=== PATIENT | female | born 1955 | race Caucasian/White ===

== ENCOUNTER 2017-06-28 07:01 | Observation (INO) | payer BC ==
[2017-06-23 14:14] VITALS: BMI 32.5
[~2017-06-28 07:01] MED LIST: DEXAMETHASONE SOD PHOSPHATE 10 MG/ML 1 ML VIAL IV ONE; HEPARIN SODIUM,PORCINE 5,000 UNIT/ML 1 ML VIAL SQ ONE; HYDROmorphone 0.5 MG/0.5 ML SYRINGE IVP PRN; LIDOCAINE 1% 20 ML VIAL (10MG/ML) FOR IV START INTRADERMA PRN; ONDANSETRON 4 MG/2 ML VIAL IVP ONE; Pre Op ABX Message 1 EACH MISC MISCELLANE ONE; SCOPOLAMINE 1.5MG/72HR PATCH TRANSDERM ONE
[2017-06-28] MEDS ORDERED: ALPRAZolam 0.5 MG TAB PO STA (07:22)
[2017-06-28] MEDS: LACTATED RINGERS 1,000 ML IV SCH (07:54)
--- NOTE | 2017-06-28 08:54 | NM ---
EXAMINATION TYPE: NM sentinel node injection DATE OF EXAM: 06/28/2017 COMPARISON: No prior imaging available at this institution. HISTORY: Right breast carcinoma with request for right breast sentinel lymph node injection. TECHNIQUE AND FINDINGS: The procedure of sentinel lymph node injection was explained to the patient. The benefits, alternatives, and risks were discussed. An informed consent was then obtained. Overlying skin is cleaned with sterile alcohol. Lidocaine buffered with bicarbonate was used as anes thetic into the skin and subcutaneous tissue surrounding the nipple. Following this, 513 uCi Tc 99m Filtered Sulfur Colloid was injected into 4 equivalent doses at 12, 3, 6, and 9:00 position surroundi ng the right nipple intradermally. The injection sites were massaged by nuclear worker technician for 10 minutes after injection. T he patient tolerated the procedure well without any immediate complication. The patient was kept in the radiology department for short stay after the procedure and then taken to surgery for surgical pr ocedure what is presumed intraoperative gamma probe will be used for sentinel lymph node detection. IMPRESSION: Right breast radiotracer injection for sentinel node localization as above.
[2017-06-28] MEDS ORDERED: HEPARIN SODIUM,PORCINE 5,000 UNIT/ML 1 ML VIAL SQ ONE (08:55)
--- NOTE | 2017-06-28 08:55 | P.PN ---
Progress Note - Text Discussed with the patient the fact that her pathology would normally be reviewed by the pathologist at our institution. However it would be an additional charge to the patient for this and she does not wish for pathology to be reviewed. I would concur that clinically the pathologic findings are consistent with the diagnosis and she wishes to proceed with surgery.
[2017-06-28] MEDS ORDERED: METHYLENE BLUE 10 MG/ML (10 ML VIAL) IV STA (09:06)
[2017-06-28] MEDS ORDERED: ceFAZolin IN SWFI 2 GM/20 ML SYRINGE IVP STA (09:08)
[2017-06-28] MEDS ORDERED: MIDAZOLAM 2 MG/2 ML VIAL ONE (09:30)
[2017-06-28] MEDS ORDERED: SUCCINYLCHOLINE CHLORIDE 100 MG/5 ML SYR IV ONE (09:30)
[2017-06-28] MEDS ORDERED: fentaNYL (PF) 50 MCG/ML 2 ML AMP ONE (09:30)
[2017-06-28] MEDS ORDERED: LIDOCAINE 1% INJ 10MG/ML (20 ML MDV) ONE (09:30)
[2017-06-28] MEDS ORDERED: PROPOFOL 10 MG/ML 20 ML VIAL IV ONE (09:30)
[2017-06-28] MEDS ORDERED: HYDROmorphone (PF) 1 MG/ML ONE (09:30)
[2017-06-28] MEDS ORDERED: ONDANSETRON 4 MG/2 ML VIAL ONE (09:30)
[2017-06-28] MEDS ORDERED: ceFAZolin IN SWFI 2 GM/20 ML SYRINGE IVP ONE (09:36)
[2017-06-28] MEDS ORDERED: METHYLENE BLUE 10 MG/ML (10 ML VIAL) INJ ONE (09:36)
[2017-06-28] MEDS ORDERED: LACTATED RINGERS 1,000 ML IV ONE (10:16)
[2017-06-28] MEDS ORDERED: ONDANSETRON 4 MG/2 ML VIAL IVP PRN (12:21)
[2017-06-28] MEDS ORDERED: NALOXONE 0.4 MG/ML 1 ML VIAL IV PRN (12:21)
[2017-06-28] MEDS ORDERED: HYDROcodone/APAP 5-325MG 1 EACH TAB PO PRN (12:21)
--- NOTE | 2017-06-28 12:21 | P.OP ---
Date of Procedure: 06/28/17 Preoperative Diagnosis: right breast cancer Postoperative Diagnosis: same Procedure(s) Performed: lymphatic mapping, right mastectomy with excision of portion of pectoralis major muscle, sentinel node biopsy 3 Anesthesia: KAYLAHA Surgeon: Katie Pickering Estimated Blood Loss (ml): 150 IV fluids (ml): 750 Pathology: other ([place] nodes times three, right breast) Condition: stable Disposition: PACU Indications for Procedure: right breast cancer Operative Findings: mass in inferior breast, extension to inferior margin re excised Description of Procedure: patient was taken to the operating room and following induction of general anesthesia to have cc of half strength methylene blue were injected in the right. Over area. The area was prepped using alcohol and the methylene blue was then injected. The breast was massaged for 3 minutes and the breast and right arm were then prepped and draped in a sterile fashion with the right arm free draped. Following this superior and inferior skin flaps were developed. These were carried down to the chest wall. The somewhat vascular and it was necessary to ligate several vessels in the process and the Harmonic Scalpel was used as well. The breast was then dissected from medial to lateral off the chest wall. Again several vessels were ligated and cauterized using the Harmonic scalpel. The aspect. There was a separate nodule and excision of the inferior margin was performed. At this time no palpable abnormality was identified at the margin. The breast was removed. The axilla was then approached. The neoprobe was utilized to identify a sentinel node. The first sentinel node was slightly blue and had a count of approximately 40,000. 2 other sentinel nodes were identified in the second sentinel node had a count of 1587 at 10 seconds initially, 1288 at 10 seconds. The background count was 29. No other blue lymph nodes of concern were identified. Frozen section evaluation of the lymph nodes were negative for cancer. After assured was attained the axilla and the chest wall were well irrigated. 2 ZEN drains were placed one in the axilla and one under the flaps. The deep tissues were closed using 3-0 Vicryl suture. The skin was closed using 4-0 Monocryl. Steri-Strips were applied. A sterile dressing and Chuy wrap were applied. The patient tolerated the procedure in stable condition. All instrument and sponge counts were correct at the end of the case. The specimen was painted for orientation. Additional tissue that had been removed was sutured to the specimen in the correct orientation and this was related to the pathologist.
[2017-06-28] MEDS ORDERED: ONDANSETRON 4 MG/2 ML VIAL IVP ONE (13:44)
[2017-06-28] MEDS ORDERED: SCOPOLAMINE 1.5MG/72HR PATCH TRANSDERM STA (16:29)
[2017-06-28] MEDS: DEXTROSE 5%-0.45% NACL 1,000 ML IV SCH (22:50)
[2017-06-28] MEDS: HYDROmorphone 4 MG/ML 1 ML SYRINGE IV PRN (22:51)
[2017-06-29] MEDS: HEPARIN SODIUM,PORCINE 5,000 UNIT/ML 1 ML VIAL SQ SCH ×3 (00:20→08:35)
[2017-06-29] MEDS: DEXTROSE 5%-0.45% NACL 1,000 ML IV SCH ×2 (01:48→09:55)
[2017-06-29 03:45] VITALS: RESP 16
[2017-06-29] MEDS: LACTATED RINGERS 1,000 ML IV SCH (03:52)
--- NOTE | 2017-06-29 05:24 | CONS ---
CONSULTATION DATE OF CONSULTATION: 06/28/2017 REASON FOR CONSULTATION: Medical management requested by Dr. Pepper Pickering. CONSULTATION: This is a 61-year-old patient of Dr. Price. Chronic stable medical conditions include osteoarthritis of different joints, varicose veins in the right leg. The patient was discovered to have a mass in the right breast, coming in for imaging was done. Based on that, it was decided to proceed with current surgery. Postop, patient had some pain at the operative site. The patient had some nausea and vomiting. Lying in bed. The patient's daughter is by the bedside. Denies any cardiac history. REVIEW OF SYSTEMS: CONSTITUTIONAL: None. HEENT: None. RESPIRATORY: Exertional wheezing. CARDIOVASCULAR: None. GASTROINTESTINAL: As above. GENITOURINARY: None. MUSCULOSKELETAL: Arthritic pain in many joints. DERMATOLOGICAL: None. HEMATOLOGIC: None. LYMPHATICS: None. PSYCHIATRY: None. NEUROLOGICAL: None. The patient has got varicose veins coming back on the right leg. PAST MEDICAL HISTORY: Past medical history of exercise-induced asthma, osteoarthritis, varicose veins. PAST SURGICAL HISTORY: Tonsillectomy, tubal ligation, D&C. SOCIAL HISTORY: Does not smoke. Alcohol occasionally. . The patient has been a middle school football coach for several years. FAMILY HISTORY: Congestive heart failure. HOME MEDICATIONS: Not listed, none. ALLERGIES: None. PHYSICAL EXAMINATION: On examination, afebrile, pulse 77, respirations 16, blood pressure 110/77, pulse ox 100% on 2 L. GENERAL APPEARANCE: Well built, BMI 32.6. Lying in bed, tired appearing. EYES: Pupils equal. Conjunctive normal. HENT: Oral cavity normal. NECK: Neck short thick. JVD unable to assess. Mass not palpable. RESPIRATORY: Effort slightly decreased breath sounds. CARDIOVASCULAR: First and second sounds normal. No edema. ABDOMEN: Soft, nontender. Liver and spleen not palpable. No mass palpable. LYMPHATIC: No lymph palpable in neck. PSYCHIATRY: Alert and oriented x3. Mood affect normal. CHEST WALL: Patient has got a dressing across the chest. MUSCULOSKELETAL: Evidence of some early osteoarthritis especially hands and knees. INVESTIGATIONS: No blood work today. ASSESSMENT: 1. Patient is status post lymphatic mapping, right mastectomy with excision of portion of pectoralis major muscle, sentinel node biopsy x3. 2. Obesity, body mass index greater than 30. 3. Varicose vein in the right leg. 4. Primary osteoarthritis especially in the hands and knees. 5. Exercise induced asthma. PLAN: Continue current medication and treatment plan. The patient used antiemetics. Patient has got Venodyne boots in place. The patient should follow up with a dietitian and family doctor as an outpatient for weight loss measures. Care was discussed with the patient and daughter at the bedside. Questions were answered. Thank you Dr. Pepper Pickering. MMABELARDOL / LUISN: [id number] /
[2017-06-29] MEDS ORDERED: PANTOPRAZOLE 40 MG TABLET PO SCH (07:30)
[2017-06-29 07:39] LABS: Basophils % (A) 0 %; Eosinophils % (A) 0 %; HCT 38.2 % (34.0-46.0); HGB 12.3 gm/dL (11.4-16.0); Lymphocytes # (A) 1.8 k/uL (1.0-4.8); Lymphocytes % (A) 21 %; MCH 28.3 pg (25.0-35.0); MCHC 32.2 g/dL (31.0-37.0); Mean Platelet Volume 7.4; Monocytes # (A) 0.5 k/uL (0-1.0); Monocytes % (A) 6 %; Neutrophils # (A) 6.1 k/uL (1.3-7.7); Neutrophils % (A) 71 %; Platelet Count 204 k/uL (150-450); RBC 4.34 m/uL (3.80-5.40); WBC 8.6 k/uL (3.8-10.6)
[2017-06-29] MEDS: HYDROmorphone 4 MG/ML 1 ML SYRINGE IV PRN (08:30)
[2017-06-29 08:39] VITALS: BP 108/66; PULSE 77; TEMP 97.5
--- NOTE | 2017-06-29 11:41 | P.PN ---
Subjective Progress Note Date: 06/29/17 Patient seen and examined at the bedside. Patient reports having alot of tenderness to the midsternal surgical area. The Chuy wrap from the chest was removed chest was inspected Steri-Strips to the right surgical site dry. No evidence of a hematoma. No redness at the site. [address] ZEN drain on the right 30 mL was emptied dark bloody drainage ZEN drain a 28 serous drainage. Surgical dressings to the site were noted to be dry Patient is postop June 28 lymphatic mapping, right mastectomy with excision of portion of pectoralis major muscle, sentinel node biopsy 3 right breast cancer Frozen section evaluation of the lymph nodes were negative for cancer Objective - Vital Signs Vital signs: Vital Signs Temp 97.5 F L 06/29/17 07:00 Pulse 77 06/29/17 07:00 Resp 16 06/29/17 08:30 BP 108/66 06/29/17 07:00 Pulse Ox 100 06/29/17 07:00 Intake & Output 06/28/17 06/29/17 06/29/17 18:59 06:59 18:59 Intake Total 1600 300 Output Total 238 25 Balance 1362 275 Weight 86.183 kg Intake: IV 1600 Oral 300 Output: Drainage 38 25 Right Breast "B" 20 15 Right Lower Breast "A" 18 10 Emesis 50 Estimated Blood Loss 150 Other: Voiding Method Toilet # Voids 1 1 - Exam Physical exam 61-year-old female currently resting comfortably in bed Lungs adequate air movement bilaterally on room air Chest Chuy wrap to the chest wall intact with 2 ZEN drains right lateral chest wall surgical dressings to the right chest/breast dry heart S1-S2 audible regular Abdomen soft nontender reports no nausea vomiting Extremities no edema noted - Labs CBC & Chem 7: 06/29/17 06:22 Assessment and Plan Assessment: Impression Right breast cancer Mass inferior breast extends to inferior margins Postop June 28 lymphatic mapping, right mastectomy with excision of portion of pectoralis major muscle, sentinel node biopsy 3 Plan Continue postop surgical care Instructed family member and ZEN drain care Anticipate discharge today Chuy wrap to be on for comfort Pain control DVT and GI prophylaxis The above impression and plan of care have been discussed and directed by signing physician. Jenny Mazariegos nurse practitioner acting as scribe for signing physician.
[2017-06-29] MEDS: ACETAMINOPHEN TAB 325 MG TAB PO PRN ×2 (12:14→14:51)
--- NOTE | 2017-06-29 12:53 | P.DS ---
Providers Date of admission: 06/29/17 11:10 Expected date of discharge: 06/29/17 Attending physician: Katie Pickering Consults: 06/28/17 12:23 Consult Physician Routine Consulting Provider: Eduin Moulton Consult Reason/Comments: medical managment Do you want consulting provider notified?: Yes Primary care physician: [place] [facility] Course: 61-year-old female presented to undergo right mastectomy for a right breast cancer. Patient underwent lymphatic mapping, right mastectomy with excision of portion of pectoralis major muscle, sentinel node biopsy 3 on the june.. There were no postop events. Frozen section evaluation of the lymph nodes were negative for cancer. 2 ZEN drains were placed one in the axillary and one under the flap on the right side. On the day of discharge family members were given instructions on care for the ZEN drains. Chuy wrap to the chest was to be worn when up.. Patient had been up ambulatory on the unit and was felt to be hemodynamically stable and appropriate to proceed with a discharge to home Impression discharge diagnosis Right breast cancer Mass inferior breast extends to inferior margins Postop June 28 lymphatic mapping, right mastectomy with excision of portion of pectoralis major muscle, sentinel node biopsy 3 with 2 ZEN drains placed right axillary another under the right flap The above impression and plan of care have been discussed and directed by signing physician. Jenny Mazariegos nurse practitioner acting as scribe for signing physician. Plan - Discharge Summary Discharge Rx Participant: Yes New Discharge Prescriptions: New HYDROcodone/APAP 5-325MG [[place] 5-325] 1 each PO Q4HR PRN #30 tab PRN Reason: Moderate Pain Discharge Medication List HYDROcodone/APAP 5-325MG [[place] 5-325] 1 each PO Q4HR PRN #30 tab 06/29/17 [Rx] Follow up Appointment(s)/Referral(s): Katie Pickering MD [STAFF PHYSICIAN] - 1 Week Patient Instructions/Handouts: Mastectomy (DC) Activity/Diet/Wound Care/Special Instructions: No tub bath for six weeks. Shower daily. No lifting over 4 pounds for the next 6 weeks. Monitor ZEN drain and record. May use ice packs to surgical site. No driving while taking narcotic for pain. Wear Chuy wrap to chest for support when up Discharge Disposition: HOME SELF-CARE
[2017-06-29] MEDS ORDERED: HYDROmorphone 4 MG TABLET PO PRN (15:40)
--- NOTE | 2017-06-30 03:05 | PN ---
PROGRESS NOTE DATE OF SERVICE: 06/29/17 PRESENTING COMPLAINT: Right breast surgery. INTERVAL HISTORY: Patient is status post right breast surgery, having some nausea today, lying in bed, feeling rather tired. Family members are present. She did throw up. REVIEW OF SYSTEMS: Done for constitutional, cardiovascular, GI, pulmonary, relevant findings as above. CURRENT MEDICATIONS: Include IV Dilaudid. PHYSICAL EXAMINATION: Temperature 97.5. Pulse 77. Respiratory rate 16. Blood pressure 108/66, pulse ox 100% on room air. GENERAL APPEARANCE: Lying in bed, tired appearing. EYES: Pupils equal, conjunctivae are normal. HEENT: External appearance of nose and ears normal. Oral cavity normal. Neck JVD not raised. Mass not palpable. Respiratory effort normal. Lungs slightly decreased breath sounds. Cardiovascular 1st and 2nd sounds normal. No edema. ABDOMEN: Soft, nontender. Liver and spleen not palpable. Psychiatry: Alert and oriented x3. Mood and affect tired-appearing. Chest wall: Patient has got a dressing across the chest. INVESTIGATIONS: White count 8.6, hemoglobin 12.3. ASSESSMENT: 1. The patient is status post lymphatic mapping, right mastectomy with excision of question of pectoral muscle and sentinel node biopsy x3. 2. Obesity BMI greater than 30. 3. Varicose veins in the right leg. 4. Primary osteoarthritis especially in the hands and knees. 5. Exercise-induced asthma. 6. Nausea, vomiting, likely as a side effect of medication especially Dilaudid. PLAN: Care was discussed with the patient. Discussed she can cut back on Dilaudid and use some oral medications and eat a cardiology nurse practitioner diet. MMODL / IJN: [id number] /
--- NOTE | 2017-08-09 21:02 | CONS ---
CONSULTATION ADDENDUM: To consultation DATE OF CONSULTATION: 06/28/2017 REASON FOR CONSULTATION: Medical management requested by Dr. Pepper Pickering. CONSULTATION: This is a 61 -year-old patient of Dr. Price. The patient's chronic stable medical conditions include primary osteoarthritis of different joints, varicose veins in the right leg, exercise induced asthma, stable. The patient was discovered to have a mass in the right breast and the patient was found to have normal tissue on the imaging. Based on that it was decided to proceed with the surgery that the patient underwent. Postop patient had some pain at the operative site. The patient had some nausea, vomiting. Lying in bed. The patient's daughter is at the bedside. Denies any cardiac history. MMODL / IJN: [id number] /
== END 2017-06-29 16:20 | disposition home or self-care (01) ==
LOC: OR 07:01 → 6PED 13:05 → 3SUR 06-29 08:00 → OR 06-29 11:13
PROVIDERS: ADMIT Surgery; ATTEND Surgery
DX: C50.111 Malignant neoplasm of central portion of right female breast (principal); Z17.0 Estrogen receptor positive status [ER+]; R11.2 Nausea with vomiting, unspecified; J45.990 Exercise induced bronchospasm; I83.91 Asymptomatic varicose veins of right lower extremity; E66.9 Obesity, unspecified; Z68.32 Body mass index [BMI] 32.0-32.9, adult; M19.042 Primary osteoarthritis, left hand; M19.041 Primary osteoarthritis, right hand; M17.0 Bilateral primary osteoarthritis of knee; Z79.82 Long term (current) use of aspirin; Z82.49 Family history of ischemic heart disease and other diseases of the circulatory system
CPT/HCPCS: 19303; 38525; 38900; 85025; 88342; 88331; 88307; 88341; 38792; G0378; A9541; J2250; J1644 ×2; J1100; J2405 ×2; J2001; Q9968; J3010; J1170 ×4; J0330; J2704; J0690

== ENCOUNTER → 2017-08-03 | Outpatient (CLI) | payer BC ==
--- NOTE | 2017-08-04 13:56 | BD ---
EXAMINATION TYPE: MG DEXA axial skeleton. DATE OF EXAM: 08/03/2017 COMPARISON: NONE CLINICAL HISTORY: Height: 64 Weight: 195.3 FRAX RISK QUESTIONS: Alcohol (3 or more units per day): no Family History (Parent hip fracture): no Glucocorticoids (More than 3mos): no (Ex: prednisone, prednisolone, methylprednisolone, dexamethasone, and hydrocortisone). History of Fracture in Adulthood: no Secondary Osteoporosis: 1. Type 1 Diabetes: no 2. Hyperthyroidism: no 3. Menopause before 45: no 4. Malnutrition: no 5. Chronic liver disease: no Rheumatoid Arthritis: no Current Tobacco Use: no RISK FACTORS HISTORY OF: Surgery to Spine/Hip(right/left)/Wrist (right/left): no Family History of Osteoporosis: no Active: yes Diet low in dairy products/other sources of calcium: no Postmenopausal woman: age 52 Lost more than 2 inches in height since high school: no Frequent falls: no Adrenal Insufficiency: no MEDICATIONS: none Additional History: breast cancer diagnosis in EXAM MEASUREMENTS: Bone mineral densitometry was performed using the [employer] [facility]. Bone mineral density as measured about the Lumbar spine is: ----- L1-L4(G/cm2): 1.178 T Score Values are as follows: ----- L2: -0.7 ----- L3: -0.2 ----- L4: -0.2 ----- L1-L4: -0.2 Bone mineral density has: baseline Bone mineral density about the R hip (g/cm2): 0.968 Bone mineral density about the L hip (g/cm2): 0.999 T Score values are as follows: -----R Neck: -0.5 -----L Neck: -0.3 -----R Total: 0.2 -----L Total: 0.7 Bone mineral density has: baseline IMPRESSION: Normal (Values between +1 and -1 indicate normal bone mass). Consider repeating this study in 5 year s or sooner if there is some new clinical indication. NOTE: T-SCORE=SD OF THE YOUNG ADULT MEAN.
== END | disposition home or self-care (01) ==
LOC: RADBDWWP 16:08
PROVIDERS: ATTEND Internal Medicine Hematology & Oncology
DX: C50.111 Malignant neoplasm of central portion of right female breast (principal); Z78.0 Asymptomatic menopausal state
CPT/HCPCS: 77080